=== PATIENT | female | born 1960 | race Caucasian/White ===

== ENCOUNTER 2017-09-05 12:58 | Emergency (ER) | payer BC ==
[2017-09-05] MEDS ORDERED: Diphtheria,Pertussis(Acell),Tetanus Vaccine 0.5 ML Syringe IM ONE (13:01)
--- NOTE | 2017-09-05 13:02 | EDM.PDOC ---
ED HPI GENERAL MEDICAL PROBLEM - General Stated Complaint: RIGHT LEG LACERATION Time Seen by Provider: 09/05/17 13:01 Source of Information: Reports: Patient - History of Present Illness INITIAL COMMENTS - FREE TEXT/NARRATIVE: HISTORY AND PHYSICAL: History of present illness: [Patient mowing lawn and shorts, a baseball sized rock was thrown up by the more striking her right tib-fib with resulting laceration No fever nausea vomiting chills sweats no other injury or trauma] Review of systems: As per history of present illness and below otherwise all systems reviewed and negative. Past medical history: As per history of present illness and as reviewed below otherwise noncontributory. Surgical history: As per history of present illness and as reviewed below otherwise noncontributory. Social history: No reported history of drug or alcohol abuse. Family history: As per history of present illness and as reviewed below otherwise noncontributory. Physical exam: HEENT: Atraumatic, normocephalic, pupils reactive, negative for conjunctival pallor or scleral icterus, mucous membranes moist, throat clear, neck supple, nontender, trachea midline. Lungs: Clear to auscultation, breath sounds equal bilaterally, chest nontender. Heart: S1S2, regular, negative for clicks, rubs, or JVD. Abdomen: Soft, nondistended, nontender. Negative for masses or hepatosplenomegaly. Negative for costovertebral tenderness. Pelvis: Stable nontender. Genitourinary: Deferred. Rectal: Deferred. Extremities: Atraumatic, negative for cords or calf pain. Neurovascular unremarkable. Neuro: Awake, alert, oriented. Cranial nerves II through XII unremarkable. Cerebellum unremarkable. Motor and sensory unremarkable throughout. Exam nonfocal. Diagnostics: [Right tib-fib ] Therapeutics: [t dap Lidocaine with epi #4 gino no complication no complaint ] Impression: Laceration3.5 cm linear/ simple Definitive disposition and diagnosis as appropriate pending reevaluation and review of above. Right Lower Leg Pain Score (Numeric/FACES): 6 - Related Data Allergies Allergy/AdvReac Type Severity Reaction Status Date / Time erythromycin base Allergy Other Verified 09/05/17 13:20 Home Meds: Home Meds Cod Liver Oil 1 tab PO DAILY 09/05/17 [History] Levothyroxine Sodium [Synthroid] 1 tab PO DAILY 09/05/17 [History] Multivitamin [Multivitamins] 1 tab PO DAILY 09/05/17 [History] Multivits Min/Iron/FA/Herb#186 [Hair, Skin and Nails Caplet] 1 tab PO DAILY 01/13 [History] ED ROS GENERAL - Review of Systems Review Of Systems: See Below ED EXAM, GENERAL - Physical Exam Exam: See Below Course - Vital Signs Last Recorded V/S: Last Vital Signs Temp 98.1 F 09/05/17 13:11 Pulse 74 09/05/17 13:11 Resp 18 09/05/17 13:11 BP 133/71 09/05/17 13:11 Pulse Ox 98 09/05/17 13:11 - Orders/Labs/Meds Orders: Active Orders 24 hr Category Date Time Status Vaccines to be Administered [RC] PER UNIT ROUTINE Care 09/05/17 13:01 Active Tibia Fibula Rt [CR] Stat Exams 09/05/17 13:01 Taken Meds: Medications Discontinued Medications Generic Name Dose Route Start Last Admin Trade Name Guillermina PRN Reason Stop Dose Admin Bacitracin 1 dose 09/05/17 13:56 Bacitracin Oint 1 Gm TOP 09/05/17 13:57 ONETIME ONE Diphtheria/Tetanus/Acell Pertussis 0.5 ml 09/05/17 13:01 09/05/17 13:33 Adacel IM 09/05/17 13:02 0.5 ml .ONCE ONE Administration Lidocaine/Epinephrine 20 ml 09/05/17 13:31 09/05/17 13:35 Xylocaine 1% With Epinephrine 1:100,000 INJECT 09/05/17 13:32 20 ml ONETIME ONE Administration Lidocaine/Epinephrine Confirm 09/05/17 13:34 09/05/17 13:57 Xylocaine 1% With Epinephrine 1:100,000 Administered 09/05/17 13:35 Not Given Dose 20 ml .ROUTE .STK-MED ONE Departure - Departure Time of Disposition: 13:58 Disposition: Home, Self-Care 01 Condition: Good Clinical Impression: Laceration - Discharge Information Additional Instructions: Medication as prescribed Return if symptoms persist or worsen Gino out in 10 days Standard wound care instruction is provided Keep wound clean and dry for 48 hours follow-up with primary care in 2 weeks for staple removal or return to [facility] [address] [place] [id number] The following information is given to patients seen in the emergency department who are being discharged to home. This information is to outline your options for follow-up care. We provide all patients seen in our emergency department with a follow-up referral. The need for follow-up, as well as the timing and circumstances, are variable depending upon the specifics of your emergency department visit. If you don't have a primary care physician on staff, we will provide you with a referral. We always advise you to contact your personal physician following an emergency department visit to inform them of the circumstance of the visit and for follow-up with them and/or the need for any referrals to a consulting specialist. The emergency department will also refer you to a specialist when appropriate. This referral assures that you have the opportunity for follow-up care with a specialist. All of these measure are taken in an effort to provide you with optimal care, which includes your follow-up. Under all circumstances we always encourage you to contact your private physician who remains a resource for coordinating your care. When calling for follow-up care, please make the office aware that this follow-up is from your recent emergency room visit. If for any reason you are refused follow-up, please contact the [facility] emergency department at and asked to speak to the emergency department charge nurse. - My Orders Last 24 Hours: My Active Orders 09/05/17 13:01 Vaccines to be Administered [RC] PER UNIT ROUTINE Tibia Fibula Rt [CR] Stat - Assessment/Plan Last 24 Hours: My Active Orders 09/05/17 13:01 Vaccines to be Administered [RC] PER UNIT ROUTINE Tibia Fibula Rt [CR] Stat
[2017-09-05] MEDS ORDERED: Lidocaine 1% with EPINEPHrine 1:100,000 20 ML MDV INJECT ONE (13:31)
[2017-09-05] MEDS ORDERED: Lidocaine 1% with EPINEPHrine 1:100,000 20 ML MDV ONE (13:34)
[2017-09-05] MEDS ORDERED: Bacitracin Oint 1 GM U/D Packet TOP ONE (13:56)
--- NOTE | 2017-09-06 15:34 | CR ---
EXAM DATE: 09/05/17 PATIENT'S AGE: 57 Patient: MATIAS BOWER Facility: [place], [place] Site . Site : 1960 Study: XRay Extremity Right tib/fib [id number]/[id number] 1:27:17 PM Ordering Physician: Doctor Hernandez Final Report: INDICATION: Laceration. TECHNIQUE: Two views right tibia and fibula. IMPRESSION: No radiopaque foreign body. No bone abnormality. Dictated by Christiano Barney MD @ Sep 05 2017 1:56PM (Electronic Signature) Report Signed by Proxy. ANTHONY
== END 2017-09-05 14:24 | disposition home or self-care (01) ==
LOC: MW.ED 12:58
DX: S81.811A Laceration without foreign body, right lower leg, initial encounter (principal); Z23 Encounter for immunization; Z88.1 Allergy status to other antibiotic agents; Z79.899 Other long term (current) drug therapy; W20.8XXA Other cause of strike by thrown, projected or falling object, initial encounter
CPT/HCPCS: 12002; 73590-26-RT; 73590-RT; 90471; 90715; 99282; 99283-25

== ENCOUNTER 2024-01-02 11:09 | Emergency (ER) | payer OTHER ==
[2024-01-02] MEDS: Acetaminophen 500 MG Tab PO ONE (11:27)
== END 2024-01-02 13:01 | disposition home or self-care (01) ==
LOC: MW.ED 11:09
DX: S52.122A Displaced fracture of head of left radius, initial encounter for closed fracture (principal); E03.9 Hypothyroidism, unspecified; Z79.899 Other long term (current) drug therapy; Z88.1 Allergy status to other antibiotic agents; W01.0XXA Fall on same level from slipping, tripping and stumbling without subsequent striking against object, initial encounter
CPT/HCPCS: 73080-26-LT; 73080-LT; 73110-26-LT; 73110-LT; 99283